=== PATIENT | male | born 2000 | race Two or more races ===

== ENCOUNTER 2022-12-26 16:21 | Emergency (ER) | payer MEDICAID ==
[~2022-12-26] VITALS: Ht 162.6 cm; Wt 68.0 kg
[2022-12-26] MEDS ORDERED: LORAZEPAM INJ 2 MG/ML VIAL ONE ×2 (17:28→19:48)
[2022-12-26] MEDS ORDERED: IV NS 0.9% 1,000 ML BAG IV ONE (17:30)
[2022-12-26] MEDS ORDERED: LORAZEPAM INJ 2 MG/ML VIAL IV ONE ×2 (17:30→19:00)
[2022-12-26 18:00] LABS: BASOPHILS % (AUTO) 0.3 % (0.0-2.0); HEMATOCRIT 46 % (39-51); HEMOGLOBIN 15.2 g/dL (13.5-17.5); LYMPHOCYTES # (AUTO) 1.1 K/uL (0.8-4.8); LYMPHOCYTES % (AUTO) 9.4 % (20.0-44.0); MEAN CORPUSCULAR HEMOGLOBIN 31 PG (26.0-33.0); MEAN CORPUSCULAR HGB CONC 33 g/dl (31.0-36.0); MEAN CORPUSCULAR VOLUME 93 fL (80-96); MONOCYTES # (AUTO) 0.9 K/uL (0.1-1.30); MONOCYTES % (AUTO) 7.8 % (2.0-12.0); NEUTROPHILS # (AUTO) 9.5 K/uL (1.8-8.9); NEUTROPHILS % (AUTO) 82.5 % (43.0-81.0); PLATELET COUNT (AUTO) 260 K/uL (150-450); RED BLOOD CELL COUNT(AUTO) 4.92 MIL/uL (4.5-6.0); RED CELL DISTRIBUTION WIDTH 14.5 % (11.5-15.0); WHITE BLOOD COUNT (AUTO) 11.5 K/uL (4.3-11.0)
[2022-12-26 18:15] LABS: MAGNESIUM 1.5 mg/dL (1.8-2.4)
[2022-12-26 18:16] LABS: CALCIUM, SERUM 9.7 mg/dL (8.5-10.1); CREATININE 0.7 mg/dL (0.6-1.3); POTASSIUM 3.1 mmol/L (3.5-5.1)
[2022-12-26 18:29] LABS: THYROID STIMULATING HORMONE 3.508 uIU/mL (0.358-3.74)
[2022-12-26 18:57] LABS: BARBITURATE, URINE NEGATIVE (NEGATIVE); BENZODIAZEPINE, URINE NEGATIVE (NEGATIVE); CANNABINOID, URINE NEGATIVE (NEGATIVE); COCCAINE, URINE NEGATIVE (NEGATIVE); OPIATE, URINE NEGATIVE (NEGATIVE); PHENCYCLIDINE SCREEN,URINE NEGATIVE (NEGATIVE)
[2022-12-26 19:03] LABS: AMPHETAMINE, URINE POSITIVE (NEGATIVE)
[2022-12-26] MEDS ORDERED: POTASSIUM CHLORIDE 20 MEQ TAB.PRT.SR PO ONE ×2 (19:30→19:47)
[2022-12-26 21:00] VITALS: BP 145/80; TEMP 98.1; O2SAT 98
== END 2022-12-26 20:52 | disposition home or self-care (01) ==
LOC: ER 16:31
DX: R00.2 Palpitations (principal); F15.90 Other stimulant use, unspecified, uncomplicated
CPT/HCPCS: 99284; 96374; 96361; 93005; 96376; 85025; 80048; 83735; 36415; 84443; 80307; J2060 ×2; J7030

== ENCOUNTER 2023-01-30 00:21 | Emergency (ER) | payer MEDICAID ==
[~2023-01-30] VITALS: Ht 162.6 cm; Wt 68.0 kg
[2023-01-30 01:11] VITALS: BP 151/68; TEMP 98.1; O2SAT 98
== END 2023-01-30 01:12 | disposition home or self-care (01) ==
LOC: ER 00:21
DX: R00.2 Palpitations (principal)